=== PATIENT | female | born 1990 | race Caucasian/White ===

== ENCOUNTER → 2024-12-31 | Outpatient (CLI) | payer OTHER, SELFPAY ==
[2024-12-31 14:30] LABS: Basophils # (Auto) 0.1 Thou/mm3 (0.0-0.2); Basophils % (Auto) 1 % (0-2.5); Eosinophils # (Auto) 0.1 Thou/mm3 (0.0-0.5); Eosinophils % (Auto) 2 % (0-10); Hematocrit 33.7 % (36.0-46.0); Hemoglobin 11.1 g/dL (12.0-16.0); Immature Granulocytes Auto 0.06 Thou/mm3 (0.00-0.00); Lymphocytes # (Auto) 2.0 Thou/mm3 (1.0-4.8); Lymphocytes % (Auto) 35 % (10-50); Mean Corpuscular HGB Conc 32.9 g/dl (31.0-37.0); Mean Corpuscular Hemoglobin 33.1 pg (25.0-35.0); Mean Corpuscular Volume 101 fL (80-100); Monocytes # (Auto) 0.5 Thou/mm3 (0.0-0.8); Monocytes % (Auto) 10 % (0-12); Neutrophils # (Auto) 2.9 Thou/mm3 (1.8-7.7); Neutrophils % (Auto) 51 % (37-80); Nucleated Red Blood Cell # 0.00 Thou/mm3 (0.00-0.00); Nucleated Red Blood Cell % 0 /100 WBC (0); Platelet Count 300 Thou/mm3 (140-440); RDW Standard Deviation 55.0 fL (36.4-46.3); Red Blood Count 3.35 Miln/mm3 (4.00-5.20); White Blood Count 5.6 Thou/mm3 (3.6-11.0)
[2024-12-31 14:52] LABS: Alanine Aminotransferase 22 U/L (10-49); Albumin, Serum 3.9 gm/dL (3.5-5.0); Albumin/Globulin Ratio 1.7 (1.2-2.2); Alkaline Phosphatase 40 U/L (46-116); Anion Gap 9 (7-16); Aspartate Amino Transferase 41 U/L (0-34); BUN/Creatinine Ratio 17 Ratio (12-20); Bilirubin,Total 0.3 mg/dL (0.3-1.2); Blood Urea Nitrogen 17 mg/dL (9-23); Calcium 9.2 mg/dL (8.3-10.6); Calcium (Corrected) 9.3 mg/dL (8.5-10.1); Carbon Dioxide 31.1 mMol/L (20.0-31.0); Chloride 103 mMol/L (98-107); Creatinine (Component) 1.0 mg/dL (0.6-1.3); Globulin 2.3 gm/dL (2.3-3.5); Glucose 81 mg/dL (74-106); Osmolality,Calculated 285 (275-295); Potassium 4.4 mMol/L (3.4-5.1); Sodium 143 mMol/L (136-145); T4 (Thyroxine) 4.2 mcg/dL (4.5-10.9); Thyroid Stimulating Hormone 3.50 uIU/mL (0.55-4.78); Total Protein 6.2 gm/dL (5.7-8.2); eGFR > 60 See Note
[2024-12-31 14:53] LABS: B-Type Natriuretic Peptide 27 pg/mL (0-100)
== END | disposition home or self-care (01) ==
LOC: COPL 14:05
PROVIDERS: PCP Family Medicine; Referring Provider Family Medicine; Visit Provider Family Medicine
DX: R60.1 Generalized edema (principal)
CPT/HCPCS: 36415; 80053; 83880; 84436; 84443; 85025

== ENCOUNTER → 2025-01-20 | Outpatient (CLI) | payer OTHER, SELFPAY | END | disposition home or self-care (01) | LOC: SLDO 14:45 | PROVIDERS: PCP Nurse Practitioner Family; Referring Provider Nurse Practitioner Family; Visit Provider Nurse Practitioner Family | DX: K94.22 Gastrostomy infection (principal) | CPT/HCPCS: 87070; 87205 ==

== ENCOUNTER → 2025-01-31 | Outpatient (CLI) | payer OTHER, SELFPAY ==
[2025-01-31 13:10] LABS: Basophils # (Auto) 0.0 Thou/mm3 (0.0-0.2); Basophils % (Auto) 0 % (0-2.5); Eosinophils # (Auto) 0.1 Thou/mm3 (0.0-0.5); Eosinophils % (Auto) 3 % (0-10); Hematocrit 37.7 % (36.0-46.0); Hemoglobin 12.0 g/dL (12.0-16.0); Immature Granulocytes Auto 0.02 Thou/mm3 (0.00-0.00); Lymphocytes # (Auto) 2.2 Thou/mm3 (1.0-4.8); Lymphocytes % (Auto) 43 % (10-50); Mean Corpuscular HGB Conc 31.8 g/dl (31.0-37.0); Mean Corpuscular Hemoglobin 31.7 pg (25.0-35.0); Mean Corpuscular Volume 100 fL (80-100); Monocytes # (Auto) 0.3 Thou/mm3 (0.0-0.8); Monocytes % (Auto) 6 % (0-12); Neutrophils # (Auto) 2.5 Thou/mm3 (1.8-7.7); Neutrophils % (Auto) 48 % (37-80); Nucleated Red Blood Cell # 0.00 Thou/mm3 (0.00-0.00); Nucleated Red Blood Cell % 0 /100 WBC (0); Platelet Count 336 Thou/mm3 (140-440); RDW Standard Deviation 48.8 fL (36.4-46.3); Red Blood Count 3.78 Miln/mm3 (4.00-5.20); White Blood Count 5.1 Thou/mm3 (3.6-11.0)
[2025-01-31 13:30] LABS: Alanine Aminotransferase 10 U/L (10-49); Albumin, Serum 4.6 gm/dL (3.5-5.0); Albumin/Globulin Ratio 1.6 (1.2-2.2); Alkaline Phosphatase 58 U/L (46-116); Anion Gap 11 (7-16); Aspartate Amino Transferase 20 U/L (0-34); BUN/Creatinine Ratio 5 Ratio (12-20); Bilirubin,Total 0.3 mg/dL (0.3-1.2); Blood Urea Nitrogen 5 mg/dL (9-23); Calcium 9.9 mg/dL (8.3-10.6); Calcium (Corrected) 9.9 mg/dL (8.5-10.1); Carbon Dioxide 29.2 mMol/L (20.0-31.0); Chloride 102 mMol/L (98-107); Creatinine (Component) 1.0 mg/dL (0.6-1.3); Free T4 (Free Thyroxine) 1.08 ng/dL (0.89-1.76); Globulin 2.9 gm/dL (2.3-3.5); Glucose 64 mg/dL (74-106); Magnesium 2.0 mg/dL (1.6-2.6); Osmolality,Calculated 278 (275-295); Phosphorous 3.9 mg/dL (2.4-5.1); Potassium 3.6 mMol/L (3.4-5.1); Sodium 142 mMol/L (136-145); Thyroid Stimulating Hormone 0.88 uIU/mL (0.55-4.78); Total Protein 7.5 gm/dL (5.7-8.2); eGFR > 60 See Note
[2025-01-31 13:35] LABS: Sed Rate (ESR) 28 mm/hr (0-20)
[2025-01-31 15:56] LABS: RA Screen Negative (Negative)
[2025-02-06 06:34] LABS: ACTH, Plasma* <5 pg/mL (6-50)
== END | disposition home or self-care (01) ==
PROVIDERS: PCP Family Medicine; Referring Provider Specialist; Visit Provider Specialist
DX: E07.9 Disorder of thyroid, unspecified (principal); K31.84 Gastroparesis; R60.9 Edema, unspecified; E34.9 Endocrine disorder, unspecified; R11.2 Nausea with vomiting, unspecified; G40.909 Epilepsy, unspecified, not intractable, without status epilepticus; F11.90 Opioid use, unspecified, uncomplicated
CPT/HCPCS: 36415; 80053; 82024; 82533; 83516; 83735; 84100; 84439; 84443; 85025; 85652; 86015; 86038; 86160; 86225; 86235; 86255; 86376; 86430

== ENCOUNTER 2025-06-05 10:30 | Emergency (ER) | payer OTHER, SELFPAY ==
[2025-06-05 10:49] VITALS: BP 136/88; PULSE 113; RESP 17; TEMP 37.1; O2SAT 96; BMI 44.2
--- NOTE | 2025-06-05 11:45 | XR_ITS ---
Examination: Abdomen AP single view Technique: AP portable supine abdomen, single view Exam date and time: June 05, 2025, 12 noon INDICATIONS: Unknown position feeding tube FINDINGS: Feeding tube in the stomach, contrast in the stomach with no extravasation IMPRESSION: Feeding tube in the stomach satisfactory position
[2025-06-05] MEDS: HYDROmorphone INJ 2 MG/ML VIAL 0.5 MG IM (11:55)
[2025-06-05] MEDS: ONDANSETRON INJ 2 MG/ML INJ 2 ML 4 MG IVP (11:55)
[2025-06-05 12:14] LABS: Basophils # (Auto) 0.0 Thou/mm3 (0.0-0.2); Basophils % (Auto) 1 % (0-2.5); Eosinophils # (Auto) 0.1 Thou/mm3 (0.0-0.5); Eosinophils % (Auto) 1 % (0-10); Hematocrit 43.0 % (36.0-46.0); Hemoglobin 14.2 g/dL (12.0-16.0); Immature Granulocytes Auto 0.02 Thou/mm3 (0.00-0.00); Lymphocytes # (Auto) 1.7 Thou/mm3 (1.0-4.8); Lymphocytes % (Auto) 32 % (10-50); Mean Corpuscular HGB Conc 33.0 g/dl (31.0-37.0); Mean Corpuscular Hemoglobin 29.9 pg (25.0-35.0); Mean Corpuscular Volume 91 fL (80-100); Monocytes # (Auto) 0.4 Thou/mm3 (0.0-0.8); Monocytes % (Auto) 8 % (0-12); Neutrophils # (Auto) 3.0 Thou/mm3 (1.8-7.7); Neutrophils % (Auto) 58 % (37-80); Nucleated Red Blood Cell # 0.00 Thou/mm3 (0.00-0.00); Nucleated Red Blood Cell % 0 /100 WBC (0); Platelet Count 355 Thou/mm3 (140-440); RDW Standard Deviation 46.5 fL (36.4-46.3); Red Blood Count 4.75 Miln/mm3 (4.00-5.20); White Blood Count 5.2 Thou/mm3 (3.6-11.0)
[2025-06-05 12:51] LABS: Alanine Aminotransferase < 7 U/L (10-49); Albumin, Serum 4.9 gm/dL (3.5-5.0); Albumin/Globulin Ratio 1.7 (1.2-2.2); Alkaline Phosphatase 62 U/L (46-116); Anion Gap 14 (7-16); Aspartate Amino Transferase 23 U/L (0-34); BUN/Creatinine Ratio 5 Ratio (12-20); Bilirubin,Total 0.3 mg/dL (0.3-1.2); Blood Urea Nitrogen < 5 mg/dL (9-23); Calcium 9.6 mg/dL (8.3-10.6); Calcium (Corrected) 9.6 mg/dL (8.5-10.1); Carbon Dioxide 27.6 mMol/L (20.0-31.0); Chloride 100 mMol/L (98-107); Creatinine (Component) 1.0 mg/dL (0.6-1.3); Estimated Creatinine Clearance 97.8 mL/min (>60); Globulin 2.9 gm/dL (2.3-3.5); Glucose 104 mg/dL (74-106); Lipase 32 U/L (12-53); Osmolality,Calculated 280 (275-295); Sodium 142 mMol/L (136-145); Total Protein 7.8 gm/dL (5.7-8.2); eGFR > 60 See Note
[2025-06-05 12:56] LABS: Potassium 2.6 mMol/L (3.4-5.1)
[2025-06-05] MEDS: POTASSIUM CHLORIDE 10% 20 MEQ/15 ML UDC 40 MEQ GT ×2 (14:11)
[2025-06-05 14:17] VITALS: BP 122/94; PULSE 103; RESP 17; TEMP 37.1; O2SAT 96
--- NOTE | 2025-06-05 14:20 | PD.EDADULT ---
ED General RME/HPI General Chief complaint: General Adult/Misc Complain Stated complaint: feeding tube fell out and is now leaking Time Seen by Provider: 06/05/25 11:07 Source: patient and family Arrival date/time: 06/05/25 10:30 Mode of arrival: ambulatory Limitations: other (Patient has a history of stroke.) RME / HPI RME / HPI narrative: This patient is a pleasant but morbidly obese and status post CVA event 34-year-old female who arrives with her for evaluation of a JG tube dislodgment that occurred this morning. Patient apparently has a G-tube that services her stomach and small intestine. states that the patient accidentally pulled the tube out past the inflatable bulb. This morning discharge patient arrives with a dislodged JG tube. Related Data Home Medications ?Medication ?Instructions ?Recorded ?Confirmed levetiracetam 1,000 mg tablet 500 mg PO BID 10/29/17 09/14/23 (Keppra) duloxetine 20 mg capsule,delayed 60 mg PO QDAY 09/14/23 09/14/23 release gabapentin 400 mg capsule 400 mg PO TID 09/14/23 09/14/23 Previous Rx's ?Medication ?Instructions ?Recorded albuterol sulfate 90 mcg/actuation 2 puff inhalation Q6H PRN 02/13/25 aerosol inhaler shortness of breath or wheezing #8.5 grams hydrocodone 5 mg-acetaminophen 325 2 tab PO Q8H PRN pain #20 tabs 02/13/25 mg tablet prednisone 50 mg tablet 50 mg PO QDAY #3 tabs 02/13/25 Allergies Allergy/AdvReac Type Severity Reaction Status Date / Time No Known Allergies Allergy Verified 06/05/25 10:36 Review of Systems Review of Systems Systems Reviewed: All systems reviewed, normal except as documented Past Medical History Past Medical History NEUROLOGIC: Positive Neurological Disorders (vns removal), Seizures, Epilepsy and Migraine CARDIAC: Negative Cardiac Disorders or Congestive Heart Failure RESPIRATORY: Positive Tuberculosis; Negative Chronic Obstructive Pulmonary Disease (COPD) or Asthma GENITOURINARY: Negative Renal Disease ENDOCRINE: Negative Diabetes Mellitus Type 1 or Diabetes Mellitus Type 2 HEMATOLOGIC: Negative Sickle Cell Disease Surgical History SURGICAL: Positive Tonsillectomy, Tubal Ligation and Section Social History SMOKING STATUS: Current every day smoker ED Exam General Limitations: Present other (Patient has a history of stroke.) General appearance: Present alert and other (Patient is in moderate distress due to abdominal pain concerns related to her JG tube issues.) Head Head exam: Present atraumatic Eye Eye exam: Present normal appearance, PERRL and EOMI ENT ENT exam: Present normal exam, normal oropharynx and mucous membranes moist Neck Neck exam: Present normal inspection, full ROM and trachea midline Chest Chest inspection: Present normal inspection and symmetric chest wall rise Respiratory Respiratory exam: Present normal lung sounds bilaterally Cardiovascular Cardiovascular exam: Present regular rate, normal rhythm and normal heart sounds Abdominal Exam Abdominal exam: Present soft and other (Patient displays a dislodged JG tube on the superior aspect of her left-sided abdomen. No signs of infection. Feeding tube is patent.) Extremities Exam Extremities exam: Present normal inspection and full ROM Back Exam Back exam: Present normal inspection and full ROM Neurological Exam Neurological exam: Present alert, oriented X3 and CN II-XII intact Psychiatric Psychiatric exam: Present normal affect and normal mood Skin Skin exam: Present warm, dry, intact and normal color Course Quality Measures none Orders Category Date Time Status KUB [XR abdomen 1V] Stat Exams 06/05/25 11:45 Completed CBC Stat Lab 06/05/25 11:08 Completed CMP [Comprehensive Metabolic Panel] Stat Lab 06/05/25 11:08 Completed Lipase Stat Lab 06/05/25 11:08 Completed HYDROcodone/APAP 10/325 [[place] 10/325] Med 06/05/25 11:39 Discontinued 1 tab PO X1 ONE HYDROmorphone INJ [Dilaudid Inj] Med 06/05/25 11:48 Discontinued 0.5 mg IM X1 ONE Ondansetron Inj [Zofran Inj] Med 06/05/25 11:48 Discontinued 4 mg IVP X1 ONE Ondansetron Odt [Zofran Odt] Med 06/05/25 11:39 Discontinued 4 mg PO X1 ONE POTASSIUM CHL 10 mEq IVPB [Kcl Ivpb] Med 06/05/25 13:05 Discontinued 10 meq in 100 ml IV Q1H POTASSIUM CHL 10% Liq 15 ML Med 06/05/25 13:08 Discontinued 40 meq GT X1 ONE POTASSIUM CHL 10% Liq 15 ML Med 06/05/25 13:10 Discontinued 40 meq GT X1 ONE Potassium Chloride [K-Dur] Med 06/05/25 13:02 Discontinued 20 meq PO X1 ONE Sodium Chloride 0.9% 1000 ml [Ns] 1,000 ml Med 06/05/25 13:04 Discontinued IV 150 mls/hr As noted above Vital Signs Vital signs: Vital Signs Temperature 98.8 F 06/05/25 10:49 Pulse Rate 113 H 06/05/25 10:49 Respiratory Rate 17 06/05/25 10:49 Blood Pressure 136/88 H 06/05/25 10:49 Pulse Oximetry (%) 96 06/05/25 10:49 Oxygen Delivery Method Room Air 06/05/25 10:49 As noted above PROCEDURES: Procedure Comment Dr. Fenton and I evaluated the patient together. Tube balloon was deflated, reinserted into the GI tract and reinflated with normal saline of approximately the 8 mL. Patient states she felt comfortable at discharge. Wound was dressed accordingly prior to discharge. Discharge Plan Plan Patient Disposition: HOME (Self Care) Prescriptions/Referrals Prescriptions/Med Rec: No Action levetiracetam [Keppra] 1,000 mg tablet 500 mg PO BID gabapentin 400 mg Capsule 400 mg PO TID duloxetine 20 mg capsule,delayed release(DR/EC) 60 mg PO QDAY Patient Comments: TAKE 1 CAPSULE BY MOUTH TWICE A DAY albuterol sulfate 90 mcg/actuation HFA aerosol inhaler 2 puff inhalation Q6H PRN (Reason: shortness of breath or wheezing) Qty: 8.5 0RF hydrocodone-acetaminophen 5-325 mg tablet 2 tab PO Q8H MDD 6 PRN (Reason: pain) Qty: 20 0RF prednisone 50 mg tablet 50 mg PO QDAY Qty: 3 0RF Referrals: Renzo Arredondo MD [Primary Care Provider, Family Practice] - In 1 week Problem List Clinical Impression: Pain from gastrostomy tube Patient/Caregiver Discharge Instructions Additional Instructions: Patient follow-up with her primary care provider and specialist as soon as possible for evaluation of her JG tube placement and long-term management. Print Language: Albanian Stand Alone Forms: Personaling Award Info., Patient Portal Info Letter MDM Narrative MDM hospital course (for use when minimal MDM required): Status post reinsertion of tube, imaging with Gastrografin was utilized to confirm good placement. Radiology confirmed that placement as well. Patient had a mild potassium reduction therefore, received potassium supplementation prior to discharge. Patient is advised to follow-up with her primary care provider and GI evaluation for continued long-term management. Clinical Information Provided by: patient Medical Records reviewed None Meds/Rx considered, not ordered None Medication Administration(s) Medication Administration History Discontinued Medications Hydrocodone Bitart/Acetaminophen (Hydrocodone/Apap 10/325 Tab) 1 tab PO X1 ONE Stop: 06/05/25 11:40 Last Admin: 06/05/25 11:46 Dose: Not Given Documented By: VL Non-Admin Reason: Cancelled by Provider Hydromorphone HCl (Hydromorphone Inj 2 Mg/Ml Vial) 0.5 mg IM X1 ONE Stop: 06/05/25 11:49 Last Admin: 06/05/25 11:55 Dose: 0.5 mg Documented By: VL Potassium Chloride (Kcl Ivpb) 10 meq in 100 mls @ 100 mls/hr IV Q1H HORACE Stop: 06/05/25 16:04 Last Admin: 06/05/25 13:53 Dose: Not Given Documented By: AC Non-Admin Reason: Cancelled by Provider Sodium Chloride (Ns) 1,000 mls @ 150 mls/hr IV .[id number] ONE Stop: 06/05/25 19:43 Last Admin: 06/05/25 13:52 Dose: Not Given Documented By: AC Non-Admin Reason: Cancelled by Provider Ondansetron HCl (Ondansetron Odt 4 Mg Tabrap) 4 mg PO X1 ONE; Protocol Stop: 06/05/25 11:40 Last Admin: 06/05/25 11:46 Dose: Not Given Documented By: VL Non-Admin Reason: Cancelled by Provider Ondansetron HCl (Ondansetron Inj 2 Mg/Ml Inj 2 Ml) 4 mg IVP X1 ONE; Protocol Stop: 06/05/25 11:49 Last Admin: 06/05/25 11:55 Dose: 4 mg Documented By: VL Potassium Chloride (Potassium Chloride 20 Meq Tabcr) 20 meq PO X1 ONE Stop: 06/05/25 13:03 Last Admin: 06/05/25 13:52 Dose: Not Given Documented By: AC Non-Admin Reason: Cancelled by Provider Potassium Chloride (Potassium Chloride 10% 20 Meq/15 Ml Udc) 40 meq GT X1 ONE Stop: 06/05/25 13:09 Last Admin: 06/05/25 14:11 Dose: 40 meq Documented By: AC Potassium Chloride (Potassium Chloride 10% 20 Meq/15 Ml Udc) 40 meq GT X1 ONE Stop: 06/05/25 13:11 Last Admin: 06/05/25 14:11 Dose: 40 meq Documented By: UMAIR
[2025-06-05 15:38] VITALS: BP 126/85; PULSE 98; RESP 17; TEMP 37; O2SAT 99
== END 2025-06-05 15:43 | disposition home or self-care (01) ==
PROVIDERS: Physician Assistant; Emergency Provider Family Medicine; PCP Family Medicine
DX: T85.848A Pain due to other internal prosthetic devices, implants and grafts, initial encounter (principal); Y84.8 Other medical procedures as the cause of abnormal reaction of the patient, or of later complication, without mention of misadventure at the time of the procedure; E66.01 Morbid (severe) obesity due to excess calories; Z68.41 Body mass index [BMI] 40.0-44.9, adult; Z93.1 Gastrostomy status; Z86.73 Personal history of transient ischemic attack (TIA), and cerebral infarction without residual deficits
CPT/HCPCS: 36415; 74018; 80053; 83690; 85025; 96372; 96374; 99284; J1171; J2405; A9270